=== PATIENT | male | born 1980 | race Caucasian/White ===

== ENCOUNTER 2018-01-23 11:01 | Emergency (ER) | payer MEDICAID, SELFPAY ==
--- NOTE | 2018-01-23 11:20 | ED.GENADUL ---
Disposition Clinical Impression: Corneal abrasion, left Disposition: HOME Condition: Stable Instructions: Corneal Abrasion (ED) Additional Instructions: Apply 1/2 inch ribbon of erythromycin ointment in left eye 4 times daily for the next 5 days. Take tylenol or motrin as needed and directed for pain. Follow up with your scheduled appointment at [facility] on FridayJanuary 28 at 420pm. Return to the emergency department with any worsening or new concerning symptoms. Medical Decision Making - Medical Decision Making 38-year-old male presents with left eye injury and pain after hit directly with rock in left eye while mowing the lawn at home 1 hour prior to arrival. No foreign body sensation. No glasses or contacts. Tetanus up-to-date. OS 20/100, OD 20/13, OU 20/13 Left eye lid eversion negative for foreign body. No discharge noted. Fluorescein staining and tetracaine revealed 3 small corneal abrasions overlying pupil. Slit-lamp exam negative for foreign body. Dose of erythromycin ointment placed here and to be given for home. Patient was scheduled for an appointment with [facility] for next Friday afternoon for follow-up. Patient was instructed to return here with any concerns. History of Present Illness - General Chief complaint: EyeProblem Stated complaint: LT EYE INJURY Time Seen by Provider: 01/23/18 11:20 Source: patient Mode of arrival: ambulatory Limitations: no limitations - History of Present Illness Initial comments: Patient is a 38-year-old male presents with left eye pain and blurry vision after mowing the lawn and hit with a rock in his left eye 1 hour prior to arrival. Denies foreign body sensation in eye. Patient takes Suboxone for history of opiate use and last received his dose this morning. Denies glasses or contacts use. Tetanus up-to-date within the past 5 years. - Related Data Buprenorphine HCl/Naloxone HCl [Suboxone 8 mg-2 mg Sl Film] 1 film SL DAILY 01/23/18 Allergies Allergy/AdvReac Type Severity Reaction Status Date / Time No Known Allergies Allergy Unverified 06/08/13 09:35 Review of Systems Constitutional: denies: chills, fever Eyes: eye pain, vision change. denies: eye discharge ENT: denies: ear pain, dental pain Respiratory: denies: cough, shortness of breath Cardiovascular: denies: chest pain, dyspnea on exertion Gastrointestinal: denies: abdominal pain, nausea, vomiting Genitourinary: denies: urgency, dysuria, frequency Musculoskeletal: denies: back pain Skin: denies: rash, lesions Neurological: denies: headache, weakness, numbness Past Medical History - Past Medical History Medical history: no medical history Surgical history: herniorraphy Psychiatric history: depression - Social History Smoking status: current everyday smoker Alcohol use: heavy Drug use: marijuana General Exam - General Limitations: no limitations General appearance: alert, in no apparent distress - Eye Eye exam: Present: PERRL, EOMI, conjunctival injection. Absent: scleral icterus, periorbital swelling, periorbital tenderness Pupils: Present: other (3 separate areas of fluorescein uptake in cornea approximately 1-4 mm in size overlying pupil. No foreign body noted with lid eversion. No eye discharge noted.) - ENT ENT exam: Present: mucous membranes moist - Respiratory Respiratory exam: Absent: respiratory distress - Cardiovascular Cardiovascular Exam: Present: regular rate - Neurological Exam Neurological exam: Present: alert, oriented X3 - Psychiatric Psychiatric exam: Present: normal affect - Skin Skin exam: Present: warm, dry, intact
[2018-01-23] MEDS: Erythromycin Ophth Oint 3.5 GM TUBE 1 GM OS (11:24)
--- NOTE | 2018-01-23 11:25 | ED.GENADUL_ITS ---
Disposition Clinical Impression: Corneal abrasion, left Disposition: HOME Condition: Stable Instructions: Corneal Abrasion (ED) Additional Instructions: Apply 1/2 inch ribbon of erythromycin ointment in left eye 4 times daily for the next 5 days. Take tylenol or motrin as needed and directed for pain. Follow up with your scheduled appointment at [facility] on FridayJanuary 28 at 420pm. Return to the emergency department with any worsening or new concerning symptoms. Medical Decision Making - Medical Decision Making 38-year-old male presents with left eye injury and pain after hit directly with rock in left eye while mowing the lawn at home 1 hour prior to arrival. No foreign body sensation. No glasses or contacts. Tetanus up-to-date. OS 20/100, OD 20/13, OU 20/13 Left eye lid eversion negative for foreign body. No discharge noted. Fluorescein staining and tetracaine revealed 3 small corneal abrasions overlying pupil. Slit-lamp exam negative for foreign body. Dose of erythromycin ointment placed here and to be given for home. Patient was scheduled for an appointment with [facility] for next Friday afternoon for follow-up. Patient was instructed to return here with any concerns. History of Present Illness - General Chief complaint: EyeProblem Stated complaint: LT EYE INJURY Time Seen by Provider: 01/23/18 11:20 Source: patient Mode of arrival: ambulatory Limitations: no limitations - History of Present Illness Initial comments: Patient is a 38-year-old male presents with left eye pain and blurry vision after mowing the lawn and hit with a rock in his left eye 1 hour prior to arrival. Denies foreign body sensation in eye. Patient takes Suboxone for history of opiate use and last received his dose this morning. Denies glasses or contacts use. Tetanus up-to-date within the past 5 years. - Related Data Buprenorphine HCl/Naloxone HCl [Suboxone 8 mg-2 mg Sl Film] 1 film SL DAILY Allergies Allergy/AdvReac Type Severity Reaction Status Date / Time No Known Allergies Allergy Unverified 06/08/13 09:35 Review of Systems Constitutional: denies: chills, fever Eyes: eye pain, vision change. denies: eye discharge ENT: denies: ear pain, dental pain Respiratory: denies: cough, shortness of breath Cardiovascular: denies: chest pain, dyspnea on exertion Gastrointestinal: denies: abdominal pain, nausea, vomiting Genitourinary: denies: urgency, dysuria, frequency Musculoskeletal: denies: back pain Skin: denies: rash, lesions Neurological: denies: headache, weakness, numbness Past Medical History - Past Medical History Medical history: no medical history Surgical history: herniorraphy Psychiatric history: depression - Social History Smoking status: current everyday smoker Alcohol use: heavy Drug use: marijuana General Exam - General Limitations: no limitations General appearance: alert, in no apparent distress - Eye Eye exam: Present: PERRL, EOMI, conjunctival injection. Absent: scleral icterus , periorbital swelling, periorbital tenderness Pupils: Present: other (3 separate areas of fluorescein uptake in cornea approximately 1-4 mm in size overlying pupil. No foreign body noted with lid eversion. No eye discharge noted.) - ENT ENT exam: Present: mucous membranes moist - Respiratory Respiratory exam: Absent: respiratory distress - Cardiovascular Cardiovascular Exam: Present: regular rate - Neurological Exam Neurological exam: Present: alert, oriented X3 - Psychiatric Psychiatric exam: Present: normal affect - Skin Skin exam: Present: warm, dry, intact
[2018-01-23] MEDS: Tetracaine 0.5% 4 ML BTL (11:26)
--- NOTE | 2018-01-23 12:10 | NUR.NOTE ---
Nursing Note: Appt. with [facility] for @ 4:20pm. Sharon Champagne.
== END 2018-01-23 11:32 | disposition home or self-care (01) ==
PROVIDERS: Emergency Provider Physician Assistant; PCP Family Medicine
DX: S05.02XA Injury of conjunctiva and corneal abrasion without foreign body, left eye, initial encounter (principal); W20.8XXA Other cause of strike by thrown, projected or falling object, initial encounter; Y93.H2 Activity, gardening and landscaping
CPT/HCPCS: 99283

== ENCOUNTER 2019-04-16 09:01 | Outpatient (REF) | payer MEDICAID, SELFPAY ==
[2019-04-16 13:02] LABS: ALT 28 U/L (16-63); AST 23 U/L (15-37); Albumin 4.5 g/dL (3.4-5.0); Alkaline Phosphatase 51 U/L (46-116); Anion Gap 9.5 mmol/L (3-11); BUN 19 mg/dL (7-18); Bilirubin, Total 0.5 mg/dL (0.2-1.0); CO2 28.5 mmol/L (21.0-32.0); CREATININE 0.94 mg/dL (0.70-1.30); Calcium 9.3 mg/dL (8.5-10.1); Chloride 105 mmol/L (98-107); Glucose 78 mg/dL (70-100); Potassium 4.1 mmol/L (3.5-5.1); Sodium 143 mmol/L (136-145); Total Protein 6.9 g/dL (6.4-8.2)
[2019-04-16 13:16] LABS: Calculated LDL 104 mg/dL; Cholesterol 183 mg/dL (50-200); HDL Cholesterol 62 mg/dL (40-60); Triglyceride 85 mg/dL (30-150)
[2019-04-16 13:20] LABS: HCT 44.7 % (40.0-50.0); HGB 14.8 g/dL (13.5-17.5); Mean Corp. HGB Concentration 33.1 g/dL (32.0-36.0); Mean Corpuscular Hemoglobin 30.6 pg (27.0-33.0); Mean Corpuscular Volume 92.5 fL (80-95); Mean Platelet Volume 10.5 fL (8.0-11.0); Platelet Count 219 x1000/uL (130-400); RBC 4.83 m/cumm (4.50-6.00); RBC Distribution Width 12.2 % (11.8-14.1); White Blood Cell Count 6.64 k/cumm (4.4-10.8)
[2019-04-20 08:17] LABS: HIV-1/2 Ag & Ab Screen Negative (Negative)
[2019-04-20 08:20] LABS: Hepatitis C Ab w Rflx HCV PCR Negative (Negative)
[2019-04-20 15:37] LABS: Hepatitis B Surface Ag Positive (Negative)
== END 2019-04-16 09:21 ==
LOC: NCHCN 09:01
PROVIDERS: PCP Family Medicine; Visit Provider Family Medicine
DX: F10.99 Alcohol use, unspecified with unspecified alcohol-induced disorder (principal); Z11.4 Encounter for screening for human immunodeficiency virus [HIV]; R63.4 Abnormal weight loss; Z11.59 Encounter for screening for other viral diseases; Z13.220 Encounter for screening for lipoid disorders
CPT/HCPCS: 80053; 80061; 85027; 86803; 87340; 87389

== ENCOUNTER 2019-05-19 16:14 | Outpatient (REF) | payer MEDICAID, SELFPAY ==
[2019-05-21 11:24] LABS: Hepatitis B Surface Ag Negative (Negative)
== END 2019-05-19 16:34 ==
LOC: NCHCN 16:14
PROVIDERS: PCP Family Medicine; Visit Provider Family Medicine
DX: Z20.5 Contact with and (suspected) exposure to viral hepatitis (principal); Z11.59 Encounter for screening for other viral diseases
CPT/HCPCS: 87340

== ENCOUNTER 2020-02-23 18:18 | Outpatient (REF) | payer MEDICAID, SELFPAY ==
[2020-02-23 19:59] LABS: HCT 48.5 % (40.0-50.0); HGB 15.9 g/dL (13.5-17.5); MCH 30.8 pg (27.0-33.0); MCHC 32.8 % (32.0-36.0); MPV 10.5 fL (8.0-11.0); Platelet Count 250 10^3/uL (130-400); RBC 5.16 10^6/uL (4.36-5.78); RDW 11.9 % (11.8-14.1); RDW-SD 41.5 fL; WBC 7.85 10^3/uL (4.4-10.8)
== END 2020-02-23 18:38 ==
LOC: NCHCN 18:18
PROVIDERS: PCP Family Medicine; Visit Provider Family Medicine
DX: F33.9 Major depressive disorder, recurrent, unspecified (principal)
CPT/HCPCS: 85027; 84443

== ENCOUNTER 2021-03-12 17:08 | Outpatient (REF) | payer OTHER, MEDICAID, SELFPAY ==
[2021-03-12 16:39] LABS: Anion Gap 5.1 mmol/L (3-11); BUN 14 mg/dL (7-18); CO2 30.9 mmol/L (21.0-32.0); CREATININE 1.1 mg/dL (0.70-1.30); Calcium 8.8 mg/dL (8.5-10.1); Chloride 107 mmol/L (98-107); Glucose 104 mg/dL (74-106); Potassium 4.4 mmol/L (3.5-5.1); Sodium 143 mmol/L (136-145)
== END 2021-03-12 17:09 | disposition home or self-care (01) ==
LOC: NCHCN 17:08
PROVIDERS: PCP Family Medicine; Visit Provider Family Medicine
DX: R03.0 Elevated blood-pressure reading, without diagnosis of hypertension (principal)
CPT/HCPCS: 80048

== ENCOUNTER 2021-10-22 19:16 | Outpatient (REF) | payer BC, MEDICAID, SELFPAY ==
[2021-10-22 18:30] LABS: ALT 22 U/L (16-63)
== END 2021-10-22 19:17 | disposition home or self-care (01) ==
LOC: NCHCN 19:16
PROVIDERS: PCP Family Medicine; Visit Provider Family Medicine
DX: Z79.899 Other long term (current) drug therapy (principal)
CPT/HCPCS: 84460

== ENCOUNTER 2022-04-22 16:48 | Outpatient (REF) | payer BC, MEDICAID, SELFPAY ==
[2022-04-22 20:09] LABS: Anion Gap 6.3 mmol/L (3-11); BUN 17 mg/dL (7-18); CO2 30.7 mmol/L (21.0-32.0); CREATININE 1.1 mg/dL (0.70-1.30); Calcium 9.2 mg/dL (8.5-10.1); Chloride 106 mmol/L (98-107); Estimated GFR 85.42 (mL/min/1.73m2); Glucose 89 mg/dL (74-106); Potassium 3.8 mmol/L (3.5-5.1); Sodium 143 mmol/L (136-145); TSH (W/Ref FT4) 6.33 uIU/mL (0.36-3.74)
[2022-04-22 20:50] LABS: FREE T4 1.06 ng/dL (0.76-1.46)
== END 2022-04-22 16:49 | disposition home or self-care (01) ==
LOC: NCHCN 16:48
PROVIDERS: PCP Family Medicine; Visit Provider Family Medicine
DX: I10 Essential (primary) hypertension (principal)
CPT/HCPCS: 80048; 84439; 84443

== ENCOUNTER 2023-07-09 05:53 | Emergency (ER) | payer BC, MEDICAID, SELFPAY ==
[2023-07-09 05:57] VITALS: BP 171/107; PULSE 101; RESP 18; TEMP 36.6; O2SAT 98
--- NOTE | 2023-07-09 06:15 | DI.US_ITS ---
Exam(s) US SCROTUM EXAM: US SCROTUM CLINICAL HISTORY: left scrotal pain, left epididymal tenderness. TECHNIQUE: Scrotal ultrasound performed using grayscale, color-flow and spectral Doppler analysis. COMPARISON: US ABDOMEN ULTRASOUND (P) from 08/14/2012 FINDINGS: Right testicle: 3.9 x 2 x 3.3 cm Echogenicity: Normal. Contour: Smooth. Mass: None seen. Microlithiasis: Yes. Hydrocele: None. Variocele: None. Hernia: No peristalsing bowel loop identified. Epididymis: Normal. 3 mm spermatocele. Left testicle: 4.3 x 1.5 x 2.5 cm Echogenicity: Normal. Contour: Smooth. Mass: None seen. Microlithiasis: Yes Hydrocele: There is a 3.9 x 1.1 x 2.4 cm hydrocele. Variocele: None. Hernia: No peristalsing bowel loop identified. Epididymis: The epididymis is hyperemic in mildly thickened suggesting epididymitis. There is a 7 mm spermatocele. Testicular DOPPLER: Color: Symmetric and uniform, no hyperemia. IMPRESSION: 1. Findings suspicious for left epididymitis. 2. No evidence of hyperemia in the testicles. 3. Incidental note is made of bilateral spermatoceles. DATA REPOSITORY:
--- NOTE | 2023-07-09 06:22 | ED.GENADUL_ITS ---
HPI General Mode of arrival: ambulatory . Date/Time Provider Initiated Documentation: 07/09/23 06:03 . Information obtained by: patient . HPI Narrative: 43yo M presenting with left-sided scrotal pain since Friday. Woke with moderate scrotal pain, testicle felt swollen; pain was manageable with ibuprofen. No N/V at the time or currently. Pain has decreased since then and is now mild. No dysuria or hematuria. No penile discharge. No abdominal pain. Prior to this event he did have similar pain on the left intermittently for the past several months. Presents this morning after his brother texted him and suggested po tential testicular torsion. He is otherwise in his usual state of health with no fevers, chills, rash, or other concerns. Related Data Home Medications Medication Instructions Recorded Confirmed buprenorphine 8 mg-naloxone 2 mg 1 film sublingual DAILY 01/23/18 07/09/23 sublingual film (Suboxone) citalopram 10 mg tablet mg DAILY 07/09/23 Allergies Allergy/AdvReac Type Severity Reaction Status Date / Time No Known Allergies Allergy Unverified 07/09/23 06:21 General Stated Complaint: Male Reproductive Problem GIOVANNI: 2 Review of Systems Narrative: see HPI Exam Narrative Exam Narrative: General: Alert, well appearing, well nourished, in no acute distress. Head: Normocephalic, atraumatic Neck: Trachea midline, ?Neck supple. Cardiac: ?RRR, no murmurs appreciated Resp: No respiratory distress. CTAB. Abd: ?Soft, non-distended, nontender : ?No suprapubic tenderness. Normal external genitalia. No discharge. No color changes to scrotum. Right testicle with normal lie, non-tender. Left testicle high-riding, nontender, not hard; epididymis and spermatic cord TTP. + cremasteric reflex bilaterally. Extremities: ?No deformities.? No peripheral edema. Neurologic: GCS 15. ? Moves all extremities freely against gravity Course Vital Signs Vital signs: Vital Signs Temperature 36.6 C 07/09/23 05:57 Pulse 101 H 07/09/23 05:57 Respiratory Rate 18 07/09/23 05:57 Blood Pressure 171/107 H 07/09/23 05:57 Pulse Oximetry 98 07/09/23 05:57 Temperature 36.6 C 07/09/23 05:57 Temperature Source Tympanic 07/09/23 05:57 Pulse 101 H 07/09/23 05:57 Respiratory Rate 18 07/09/23 05:57 Respiratory Effort Normal 07/09/23 06:01 Blood Pressure 171/107 H 07/09/23 05:57 Pulse Oximetry 98 07/09/23 05:57 Oxygen Delivery Method Room Air 07/09/23 05:57 Oxygen Flow Rate 0 07/09/23 05:57 Pain Level 2 07/09/23 05:57 Medical Decision Making 43yo M presenting with left-sided scrotal pain since Friday. Woke with moderate scrotal pain, testicle felt swollen. Pain was manageable with ibuprofen and has decreased since onset, now mild. No urinary symptoms or discharge. Hypertensive and slightly tachycardiac on arrival after ambulating into the department. Pain sitting comfortably on exam, does not appear to be in pain. Reports pain is very mild at this time. Left testicle is high-riding; no scrotal color changes or edema, left epididymis and cord markedly TTP. Very low suspicion for testicular torsion given that patient is in minimal pain and exam shows epididymal tenderness; will evaluate further with scrotal ultrasound. US not available yet this morning but should be here in 1-2 hours; unlikely to be able to transfer patient in that period of time and likely fastest time to US will be if patient remains here. UA as below, equivocal with +nitrate and moderate bacteria but no WBCs. Urine G&C sent out; would not treat empirically for STI. If US consistent with epididymitis would cover for enteric organisms. Signed out to oncoming physician, plan to followup US. Lab Data Lab results reviewed: Yes I reviewed the patient's lab results. Labs: 07/09/23 06:24 Urine - Reflex from Ua Urine Culture - Pending Laboratory Tests Range/Units 07/09/23 06:24 Urine Color (Yellow) Yellow Urine Clarity (Clear) Sl Cloudy Urine pH (5-8) 6.0 Ur Specific [place] (1.005-1.025) >= 1.030 H Urine Protein (Negative) mg/dL 30 H Urine Ketones (Negative) mg/dL Negative Urine Blood (Negative) Negative Urine Nitrite (Negative) Positive H Urine Bilirubin (Negative) Negative Urine Urobilinogen (Up to 0.2) mg/dL 0.2 Ur Leukocyte Esterase (Negative) Negative Urine RBC (0-2) HPF 0-2 Urine WBC (0-5) HPF 0-2 Ur Epithelial Cells (Negative) HPF Rare Urine Crystals (Negative) HPF Negative Urine Bacteria (Negative) HPF Moderate Urine Casts (Negative) LPF Negative Urine Mucus (Negative) Moderate Ur Culture Indicated? Yes Urine Glucose (Negative) mg/dL Negative Quality:SDOH Health Related Social Needs: No Data to Display PFSH Medical History Depression Family History Mother No problems noted. Father No problems noted. Social History Smoking/Tobacco Use Status: Current every day Smoking risk assessment performed?: Yes Drug use: Current Sobriety Substance use type: opiates Do you feel safe in your relationship?: Yes Sign Out Sign Out Data: Sign Out Comment: 43m with left scrotal pain for 3-4 days. Likely epididymitis. Pending US. Last updated by Apple Benavides MD at 07/09/23 06:47 PAWSS Have you Been Recently Intoxicated or Drunk Within the Last 30 days?: No Have you Ever Experienced Previous Episodes of Alcohol Withdrawal?: No Have you ever Experienced Withdrawal Seizures?: No Have you ever Experienced Delirium Tremens(DT)s?: No Have you ever undergone Alcohol Rehabilitation Treatment (i.e, inpt ot outpatient treatment programs)?: No Have you ever Experienced Blackouts?: No Have you ever Combined Alcohol with other Downers within the last 90 days?: No Have you ever Combined Alcohol with any other Substance of Abuse during the last 90 days?: No Positive Blood Alcohol level on Presentation? [PCS.BAL]: No Evidence of Increased Autonomic Activity (i.e. HR>120, tremor, sweating, agitation, nausea)?: No Result: 0 Discharge Plan Discharge Details Chief Complaint: Male Reproductive Problem Primary Care Provider: Pascual Valiente ED Provider: Apple Benavides Home Meds and New Rx's Prescriptions: No Action buprenorphine-naloxone [Suboxone] 1 EACH film 1 film Sublingual DAILY citalopram 10 mg tablet DAILY Patient Comments: TAKE ONE TABLET BY MOUTH EVERY DAY Rx Instructions: HS
[2023-07-09 06:43] LABS: Bilirubin Negative (Negative); Blood Negative (Negative); Clarity Sl Cloudy (Clear); Glucose Negative (Negative); Ketones Negative (Negative); Leukocyte Esterase Negative (Negative); Nitrite Positive (Negative); Specific Gravity >= 1.030 (1.005-1.025); Urobilinogen 0.2 mg/dL (Up to 0.2)
[2023-07-09 06:50] LABS: Bacteria Moderate HPF (Negative); C & S Indicated? Yes; Casts Negative LPF (Negative); Crystals Negative HPF (Negative); Epithelial Cells Rare HPF (Negative); Mucus Moderate (Negative); RBC 0-2 HPF (0-2); WBC 0-2 HPF (0-5)
--- NOTE | 2023-07-09 07:30 | RT.EKG_ITS ---
APPROVED REPORT Exam: Resting ECG Reason for Exam: QT monitoring Patient Location: E HR:74 bpm ECG Measurements Heart Rate 74 AXIS MN 148 P 73 QRSd 83 QRS 151 QT 391 T 59 QTc 432 Conclusion Sinus rhythm...normal P axis, V-rate 60- 99 Right axis deviation...QRS axis (100,269) Physician: no stemi
[2023-07-09] MEDS: Acetaminophen 500 MG TAB 1000 MG PO (07:54)
[2023-07-09] MEDS: Ketorolac 15 MG/ML VIAL IM (07:55)
[2023-07-09 08:03] VITALS: BP 166/82; PULSE 82; RESP 20; TEMP 36.8; O2SAT 97
--- NOTE | 2023-07-09 08:19 | NUR.NOTE ---
Referral faxed to [facility] for epididimytis in 1 week. Nursing Note:
--- NOTE | 2023-07-09 09:03 | W.EDPROG ---
Date of service: 07/09/23 Time of Service: 09:03 Medical Decision Making Patient was signed out to me by my colleague Dr. Alex. Please refer to HPI, physical exam, assessment and plan. We are pending ultrasound findings. Findings show evidence of epididymitis, no evidence of torsion or other abnormalities. Patient will be given Levaquin for home use. Discussed red flags for which to return. I have extensively reviewed the treatment plan and discharge instructions with the patient. I have addressed all patient concerns at this time. The patient was made aware of what symptoms to monitor for that would warrant a return to the emergency department. Discussed the plan with the patient, they demonstrate verbal understanding and agreement with our assessment and plan at this time. The documentation in this chart was dictated using [employer] dictation software. Please excuse any dictation errors. EKG is benign, QT normal. Patient appropriate for Levaquin use. FINDINGS: Right testicle: 3.9 x 2 x 3.3 cm Echogenicity: Normal. Contour: Smooth. Mass: None seen. Microlithiasis: Yes. Hydrocele: None. Variocele: None. Hernia: No peristalsing bowel loop identified. Epididymis: Normal. 3 mm spermatocele. Left testicle: 4.3 x 1.5 x 2.5 cm Echogenicity: Normal. Contour: Smooth. Mass: None seen. Microlithiasis: Yes Hydrocele: There is a 3.9 x 1.1 x 2.4 cm hydrocele. Variocele: None. Hernia: No peristalsing bowel loop identified. Epididymis: The epididymis is hyperemic in mildly thickened suggesting epididymitis. There is a 7 mm spermatocele. Testicular DOPPLER: Color: Symmetric and uniform, no hyperemia. IMPRESSION: 1. Findings suspicious for left epididymitis. 2. No evidence of hyperemia in the testicles. 3. Incidental note is made of bilateral spermatoceles. Quality:SDOH Health Related Social Needs: No Data to Display Sign Out Sign Out Data: Sign Out Comment: 43m with left scrotal pain for 3-4 days. Likely epididymitis. Pending US. Last updated by Apple Benavides MD at 07/09/23 06:47 Discharge Plan Disposition Patient Disposition: Home Condition: Good Discharge Details Clinical Impression: Epididymitis Primary Care Provider: Pascual Valiente ED Provider: Ron Milton Home Meds and New Rx's Prescriptions: New levofloxacin 750 mg tablet 750 mg PO DAILY Qty: 10 0RF Continued buprenorphine-naloxone [Suboxone] 1 EACH film 1 film Sublingual DAILY citalopram 10 mg tablet DAILY Patient Comments: TAKE ONE TABLET BY MOUTH EVERY DAY Rx Instructions: HS Discharge Instructions Instructions: Epididymitis (ED) Additional Instructions: Ibuprofen over the counter for pain; follow the directions on the bottle. Take the antibiotic as prescribed until it is all gone. Followup with urology; they will call you to schedule an appointment. Return to the emergency department for new or worsening symptoms including fever, new/different/worse pain, penile discharge, or if you have any other concerns. If you notice any worsening of your symptoms, or any new symptoms such as vomiting, diarrhea, fever, chills, shortness of breath, chest pain, numbness, weakness, or fainting , please return immediately to the emergency department for reevaluation. Please follow up with your primary care provider as soon as possible for reassessment and reevaluation. As always, it was a pleasure participating in your medical care today. Referrals: [facility] [Provider Group]
[2023-07-10 13:38] LABS: Chlamydia Result Negative (Negative); GC Result Negative (Negative)
== END 2023-07-09 09:23 | disposition home or self-care (01) ==
PROVIDERS: Student in an Organized Health Care Education/Training Program; Emergency Provider Student in an Organized Health Care Education/Training Program; PCP Family Medicine
DX: N50.812 Left testicular pain (principal); F17.200 Nicotine dependence, unspecified, uncomplicated
CPT/HCPCS: 00123; 87077; 87491; 87591; 93005; 99284; 76870; 81003; 81015; 87086; 87186; 93010; 99283; J1885